=== PATIENT | female | born 1970 | race African-American/Black ===

== ENCOUNTER → 2020-07-09 | Outpatient (CLI) | payer BC, OTHER ==
[~2020-07-09] MED LIST: ASA81BEC PO; ATIVAN0.5 MG PO; BUTALB-APAP-CA1 EACH PO; CARAFATE 1 GM TA1 G1 PO; COMPAZINE10 MG PO; FLEXERIL PO; IMURAN PO; K-DUR 20 MEQ T20 MEQ PO; LASIX 40 MG TAB40 MG PO; MESTINON180 MG PO; MESTINON60 MG PO; MIDRIN CAPSULE1 CAP PO; NORCO 5-325 TA1 EACH PO; OMEPRAZOLE40 MG PO; ONDANSETRON HCL4 M2 PO; OXYCODON-ACETA1 EAC1 PO; PHENERGAN 25 MG25 M1 PO; PROTONIX40 M2 PO; PYRIDOSTIGMINE60 M1 PO; TOPROL XL25 MG PO
[2020-07-09 14:44] VITALS: BP 135/63
[2020-07-09 15:55] VITALS: BP 130/49
--- NOTE | 2020-07-09 16:10 | NUR ---
HERE FOR FIRST OF TWO INJECTAFER INFUSIONS. WALKS SLOWLY WITH USE OF CANE. MOTHER WITH PATIENT. TOLERATED INFUSION WITHOUT ADVERSE REACTION. POST BP WNL. DC PER WHEELCHAIR WITH MOTHER. TO RETURN IN ONE WEEK FOR NEXT INFUSION.
== END ==
LOC: OPONC 08:39
PROVIDERS: ATTEND Internal Medicine
DX: D50.9 Iron deficiency anemia, unspecified (principal)
CPT/HCPCS: 95000

== ENCOUNTER → 2020-07-16 | Outpatient (CLI) | payer BC, OTHER ==
[2020-07-16 16:00] VITALS: BP 121/64
[2020-07-16 16:39] LABS: INR 2.27; PROTIME 23.8 Seconds (10.5-12.1)
--- NOTE | 2020-07-16 17:16 | NUR ---
HERE FOR SECOND INJECTAFER. STATES HAD NO DIFFICULTIES WITH LAST INFUSION. IV STARTED AND PROTIME DRAWN ORDERED. FAXED RESULTS OF PROTIME TO DR. NOVAK. TOLERATED INFUSION WITHOUT ADVERSE REACTION. POST BP 130/71. DC PER WHEELCHAIR IN STABLE CONDITION ACCOMPANIED BY MOTHER.
== END ==
LOC: OPONC 12:04
PROVIDERS: ATTEND Internal Medicine
DX: D50.9 Iron deficiency anemia, unspecified (principal)
CPT/HCPCS: 95000